=== PATIENT | male | born 1955 | race Caucasian/White ===

== ENCOUNTER 2017-12-04 17:33 | Inpatient (IN) ==
[2017-12-04] MEDS ORDERED: Diphtheria/Tetanus/Pertussis Vaccine Inj 0.5 ML Syringe IM ONE (17:39)
[2017-12-04] MEDS ORDERED: fentaNYL Citrate Inj 100 MCG/2 ML Ampul ONE (17:46)
[2017-12-04 18:05] LABS: Activated Partial Thrombo Time 23.6 sec (24.3-30.1); INR 1.1 Ratio; Prothrombin Time 11.5 sec (9.8-11.6)
[2017-12-04 18:15] LABS: Baso # (Auto) 0.1 th/mm3 (0.0-0.2); Baso % (Auto) 0.5 % (0.0-2.0); Eos # (Auto) 0.3 th/mm3 (0.0-0.4); Hematocrit 47.5 % (39.0-51.0); Lymph # (Auto) 3.8 th/mm3 (1.0-4.8); Lymph % (Auto) 27.9 % (9.0-44.0); Mean Corpuscular HGB Conc 33.7 % (32.0-36.0); Mean Corpuscular Hemoglobin 29.8 pg (27.0-34.0); Mean Corpuscular Volume 88.3 fL (80.0-100.0); Mean Platelet Volume 9.9 fL (7.0-11.0); Mono # (Auto) 1.2 th/mm3 (0.0-0.9); Mono % (Auto) 8.7 % (0.0-8.0); Neut # (Auto) 8.4 th/mm3 (1.8-7.7); Neut % (Auto) 60.9 % (16.0-70.0); Platelet Count 294 th/mm3 (150-450); Red Blood Count 5.38 mil/mm3 (4.50-5.90); Red Cell Distribution Width 14.5 % (11.6-17.2); White Blood Count 13.8 th/mm3 (4.0-11.0)
--- NOTE | 2017-12-04 18:18 | XR ---
EXAM DATE: 12/04/2017 6:07 PM EDT AGE/SEX: 89 years / Male INDICATIONS: Trauma alert. Left hand pain after hitting 3rd digit with a chain saw. CLINICAL DATA: This is the patient's initial encounter. Patient reports that signs and symptoms have been present for 1 day and indicates a pain score of 10/10. MEDICAL/SURGICAL HISTORY: Non-responsive. Non-responsive. COMPARISON: No prior exams available for comparison. FINDINGS: There is a complete fracture of the third middle phalanx and beyond it is amputated. CONCLUSION: Fracture amputation third middle phalanx and beyond. Electronically signed by: Deyvi Sexton MD 12/04/2017 6:17 PM EDT
--- NOTE | 2017-12-04 18:18 | XR ---
EXAM DATE: 12/04/2017 6:09 PM EDT AGE/SEX: 89 years / Male INDICATIONS: Trauma. Tree branch landed on patients left leg. CLINICAL DATA: This is the patient's initial encounter. Patient reports that signs and symptoms have been present for 1 day and indicates a pain score of 10/10. MEDICAL/SURGICAL HISTORY: None. None. COMPARISON: No prior exams available for comparison. FINDINGS: No definite fractures, or dislocations are identified. No definite lytic or sclerotic lesion is seen . CONCLUSION: Unremarkable study. Electronically signed by: Deyvi Sexton MD 12/04/2017 6:16 PM EDT
--- NOTE | 2017-12-04 18:19 | XR ---
EXAM DATE: 12/04/2017 6:10 PM EDT AGE/SEX: 89 years / Male INDICATIONS: Trauma alert. Left lateral leg pain after having an accident with a chainsaw and a tree branch hit lower leg. CLINICAL DATA: This is the patient's initial encounter. Patient reports that signs and symptoms have been present for 1 day and indicates a pain score of 4/10. MEDICAL/SURGICAL HISTORY: Non-responsive. e Non-responsive. COMPARISON: No prior exams available for comparison. FINDINGS: There is a complete fracture of proximal fibula with slight displacement. CONCLUSION: Proximal fibular fracture. Electronically signed by: Deyvi Sexton MD 12/04/2017 6:18 PM EDT
--- NOTE | 2017-12-04 19:01 | ED ---
HPI General Chief Complaint: Trauma Alert Stated Complaint: Trauma Alert Time Seen by Provider: 12/04/17 18:17 Source: patient and EMS Mode of arrival: EMS Limitations: no limitations History of Present Illness HPI narrative: Patient presents as a level 2 trauma. He was using a pull saw on a tree at his house and trying to cut down the limb. Limb then fell and struck him in the left leg. When the limb fell he misplaced the saw and accidentally amputated his left middle finger. The digit was placed on ice and brought here. EMS reports that his initial blood pressure on their arrival was in the 70s but this quickly improved. He has had a normal mental status his entire time. Patient states that he did fall backwards but he did not hit his head nor lose consciousness. He denies head, neck, back pain. MD complaint: injury Onset (ago): minute(s) Loss of Consciousness: no Severity: severe Context: other Associated symptoms: denies other symptoms Treatments prior to arrival: dressings Related Data Home Medications Medication Instructions Recorded Confirmed No Known Home Medications 12/04/17 12/04/17 Allergies Allergy/AdvReac Type Severity Reaction Status Date / Time No Allergy Information Allergy Unverified 12/04/17 17:36 Available Review of Systems ROS: all other systems reviewed are negative [facility] Medical History Medical History Patient denies medical problems (Acute) Surgical History Surgical History No history of previous surgery (Acute) Social History Social History Substance History: No History of Abuse Second Hand Smoke Exposure: Yes Smoking Status: Current every day smoker Tobacco Type: Cigarettes How Often Do You Have a Drink Containing Alcohol: Never Recent Travel in [place] within the Last 8 Weeks: No Recent Out of Country Travel within the Last 8 Weeks: No Immunization History Tetanus Immunization: >5 Years Hx Influenza Vaccine This Season: No Exam Narrative Exam Narrative: GENERAL: Well-appearing male in no acute distress SKIN: Focused skin assessment warm/dry. Multiple abrasions. Laceration to the left ring finger with amputation of the left middle finger near the DIP. Abrasion to left proximal fibula area. HEAD: Atraumatic. Normocephalic. EYES: Pupils equal and round. No scleral icterus. No injection or drainage. ENT: No nasal bleeding or discharge. Mucous membranes pink and moist. NECK: Trachea midline. No JVD. CARDIOVASCULAR: Regular rate and rhythm. No murmur appreciated. Intact and equal peripheral pulses. RESPIRATORY: No accessory muscle use. Clear to auscultation. Breath sounds equal bilaterally. GASTROINTESTINAL: Abdomen soft, non-tender, nondistended. Hepatic and splenic margins not palpable. MUSCULOSKELETAL: No clubbing. No cyanosis. No edema. Hematoma to the left lateral lower leg. Amputation of the distal phalanx of the left middle finger. Laceration with exposed tendon of the left ring finger. NEUROLOGICAL: Awake and alert. No obvious cranial nerve deficits. Motor grossly normal limits. Normal sensation. Normal speech. PSYCHIATRIC: Appropriate mood and affect; insight and judgment normal. Course Initial Documented Vital Signs Pulse Rate 83 12/04/17 18:09 Respiratory Rate 15 12/04/17 18:09 Blood Pressure 117/64 12/04/17 18:09 Pulse Oximetry 100 12/04/17 18:09 Last Documented Vital Signs Pulse Rate 83 12/04/17 18:09 Respiratory Rate 15 12/04/17 18:09 Blood Pressure 117/64 12/04/17 18:09 Pulse Oximetry 100 12/04/17 18:09 Medical Decision Making MDM Narrative Medical decision making narrative: Patient presents as a level 2 trauma secondary to a chain saw injury. He was struck in the left leg with a branch from a tree. X-ray does show a fibula fracture and he has been placed in a splint. There is an abrasion overlying it but the fracture does not appear to be open. I spoke to the orthopedic surgeon plater production, Dr. Fuentes, who is aware of the patient. The patient also has a deep laceration to the left ring finger with an amputation of the distal phalanx of the left middle finger. The wound is grossly contaminated and the amputated part is macerated and grossly contaminated. I spoke with the hand surgeon on-call at [facility] whom stated that they would not re-implant this injury. I then spoke with our hand surgeon here, Dr. Lin, who stated that he would come see the patient. Dr. Blunt, trauma surgeon on-call, has admitted the patient. Tetanus status was updated and he was given Ancef. Medical Screen Exam Complete: Yes Emergency Medical Condition: Yes Differential Diagnosis Differential Diagnosis: Differential diagnosis includes but is not limited to amputation, tendon injury, osteomyelitis, open fracture. Medical Records Medical records reviewed: Yes I reviewed the patient's medical records. Lab Data Lab results reviewed: Yes I reviewed the patient's lab results. Result diagrams: 12/04/17 17:40 Lab Results 12/04/17 12/04/17 12/04/17 Range/Units 17:40 17:40 17:40 WBC 13.8 H (4.0-11.0) th/mm3 RBC 5.38 (4.50-5.90) mil/mm3 Hgb 16.0 (13.0-17.0) gm/dL POC Hgb (Calc) 16.0 (13.0-17.0) g/dL Hct 47.5 (39.0-51.0) % POC Hct 47.0 (39-51.0) % MCV 88.3 (80.0-100.0) fL MCH 29.8 (27.0-34.0) pg MCHC 33.7 (32.0-36.0) % RDW 14.5 (11.6-17.2) % Plt Count 294 (150-450) th/mm3 MPV 9.9 (7.0-11.0) fL Neut % (Auto) 60.9 (16.0-70.0) % Lymph % (Auto) 27.9 (9.0-44.0) % [place] % (Auto) 8.7 H (0.0-8.0) % Eos % (Auto) 2.0 (0.0-4.0) % Baso % (Auto) 0.5 (0.0-2.0) % Neut # (Auto) 8.4 H (1.8-7.7) th/mm3 Lymph # (Auto) 3.8 (1.0-4.8) th/mm3 [place] # (Auto) 1.2 H (0.0-0.9) th/mm3 Eos # (Auto) 0.3 (0.0-0.4) th/mm3 Baso # (Auto) 0.1 (0.0-0.2) th/mm3 WBC Differential . Differential Comment Auto diff final PT 11.5 (9.8-11.6) sec INR 1.1 Ratio APTT 23.6 L (24.3-30.1) sec POC Sodium 141 (137-144) mmol/L POC Potassium 5.6 H (3.6-5.0) mmol/L POC Chloride 109 (102-111) mmol/L POC BUN 24 H (5-21) mg/dL POC Creatinine 1.3 (0.6-1.3) mg/dL POC Glucose 101 (68-110) mg/dL Blood Type Antibody Screen 12/04/17 Range/Units 17:40 WBC (4.0-11.0) th/mm3 RBC (4.50-5.90) mil/mm3 Hgb (13.0-17.0) gm/dL POC Hgb (Calc) (13.0-17.0) g/dL Hct (39.0-51.0) % POC Hct (39-51.0) % MCV (80.0-100.0) fL MCH (27.0-34.0) pg MCHC (32.0-36.0) % RDW (11.6-17.2) % Plt Count (150-450) th/mm3 MPV (7.0-11.0) fL Neut % (Auto) (16.0-70.0) % Lymph % (Auto) (9.0-44.0) % [place] % (Auto) (0.0-8.0) % Eos % (Auto) (0.0-4.0) % Baso % (Auto) (0.0-2.0) % Neut # (Auto) (1.8-7.7) th/mm3 Lymph # (Auto) (1.0-4.8) th/mm3 [place] # (Auto) (0.0-0.9) th/mm3 Eos # (Auto) (0.0-0.4) th/mm3 Baso # (Auto) (0.0-0.2) th/mm3 WBC Differential Differential Comment PT (9.8-11.6) sec INR Ratio APTT (24.3-30.1) sec POC Sodium (137-144) mmol/L POC Potassium (3.6-5.0) mmol/L POC Chloride (102-111) mmol/L POC BUN (5-21) mg/dL POC Creatinine (0.6-1.3) mg/dL POC Glucose (68-110) mg/dL Blood Type A Positive Antibody Screen Negative Imaging Data Attestation: I personally reviewed and interpreted this imaging study as follows : Radiologist's impression: Femur X-Ray 12/04/17 17:41 CONCLUSION: Unremarkable study. Hand X-Ray 12/04/17 17:41 CONCLUSION: Fracture amputation third middle phalanx and beyond. Tibia/Fibula X-Ray 12/04/17 17:41 CONCLUSION: Proximal fibular fracture. Discharge Plan Discharge Disposition Patient Disposition: 30 Still Patient Discharge Condition Condition: Stable Discharge Details Diagnosis: Amputated finger, Closed fibular fracture Physicians Team ED Provider: Elise Reyes Primary Care Provider: UNKNOWN, Attending Provider: Shyam Blunt Other Providers: Fam Lin Status ED Status: Admitted Patient
[2017-12-04] MEDS: Morphine Inj 4 MG/ML Vial IV.PUSH PRN ×2 (19:53→23:54)
[2017-12-04] MEDS: Sod Chloride 0.9% Inj 1,000 ML IV.SIG SCH (19:54)
[2017-12-04] MEDS ORDERED: Post-op Orders (for Pharmacy) OTHER ONE (21:34)
[2017-12-04] MEDS ORDERED: Naloxone Inj 0.4 MG/ML Vial IV.PUSH PRN (21:34)
[2017-12-04 22:44] LABS: Calcium 8.3 mg/dL (8.5-10.1); Carbon Dioxide 20.7 meq/L (21.0-32.0)
[2017-12-04 22:46] LABS: Potassium 5.6 meq/L (3.5-5.1)
[2017-12-05] MEDS: Morphine Inj 4 MG/ML Vial IV.PUSH PRN ×5 (01:53→20:19)
[2017-12-05] MEDS ORDERED: Chlorhexidine Gluconate 2% 1 Pack (2 Cloths) TOPICAL ONE (02:06)
[2017-12-05] MEDS ORDERED: Metoprolol Tartrate 25 MG Tablet PO ONE (02:06)
[2017-12-05] MEDS ORDERED: Sodium Chlor 0.9% Inj 500 ML IV.SIG SCH (03:00)
[2017-12-05] MEDS: Sod Chloride 0.9% Inj 1,000 ML IV.SIG SCH (05:10)
--- NOTE | 2017-12-05 07:32 | P.CONOP ---
[facility] Orthopedics Consult Note - [facility] Consult date: 12/05/17 Requesting physician: Marina Noel (ER staff/trauma service) Consult reason: fracture Chief complaint: Finger Amputation, proximal third fibula fracture Narrative: [place] is a very pleasant 62-year-old male who presented to the emergency department by EMS late last evening. He admits he was cutting down branches with his son using a chainsaw. Patient states his son was up above using the chainsaw and he was below on the ground. He believes that a branch quickly came down which subsequently amputated his middle finger and then hit his left lower leg. After evaluation and radiographs in the ER orthopedic consultation was requested for a left proximal third fibular fracture. Patient states he has no other orthopedic injuries and/or musculoskeletal complaints. Hand surgery is involved. Patient states that he was told that amputated finger was irreparable. Patient previously ambulated independently. He states he has no other medical concerns or issues. No previous orthopedic surgeries. <Deepti Sol" - Last Filed: 12/05/17 07:13> Review of Systems Well outlined medical record <Deepti Sol" - Last Filed: 12/05/17 07:13> PMFSH - History History Provided By: Patient - Medical History Medical History: Medical History (Last Reviewed 12/04/17 @ 18:56 by Elise Reyes MD) Patient denies medical problems - Surgical History Surgical History: Surgical History (Last Reviewed 12/04/17 @ 18:56 by Elise Reyes MD) No history of previous surgery - Tobacco History Second Hand Smoke Exposure: Yes Tobacco Use In Past 30 Days: Yes Smoking Status: Current every day smoker Tobacco Type: Cigarettes - Alcohol History How Often Do You Have a Drink Containing Alcohol: Never - Substance Use History Substance History: No History of Abuse - Travel History Recent Travel in the [place] Within the Last 8 Weeks: No Recent Travel Out of the Country Within the Last 8 Weeks: No - Immunization History Tetanus Immunization: >5 Years Hx Influenza Vaccine This Season: No <Deepti Sol" - Last Filed: 12/05/17 07:13> - Medical History Medical History: Medical History (Last Reviewed 12/04/17 @ 18:56 by Elise Reyes MD) Patient denies medical problems - Surgical History Surgical History: Surgical History (Last Reviewed 12/04/17 @ 18:56 by Elise Reyes MD) No history of previous surgery <Jose R Fuentes - Last Filed: 12/05/17 07:53> Medications and Allergies Active Medications: Active Medications Albuterol (Duoneb Neb (Prn)) 1 ampul NEB Q2HR NEB PRN PRN Reason: SHORTNESS OF BREATH Sodium Chloride (Ns Inj) 1,000 mls @ 100 mls/hr IV.SIG .Q10H [facility]IL[facility] Last Admin: 12/05/17 05:10 Dose: 100 mls/hr Cefazolin Sodium 1,000 mg/ (Sodium Chloride) 100 mls @ 200 mls/hr IV.SIG Q8H [facility]ILA Last Infusion: 12/05/17 02:30 Dose: Infused Lactated Ringer's (Lr 1000 Ml Inj) 1,000 mls @ 30 mls/hr IV.SIG .Q24H [facility] Stop: 12/06/17 02:14 Sodium Chloride (Ns Inj) 500 mls @ 30 mls/hr IV.SIG .Q10H [facility] Lactulose (Lactulose Liq) 30 ml PO DAILY PRN PRN Reason: CONSTIPATION Morphine Sulfate (Morphine Inj) 4 mg IV.PUSH Q2H PRN PRN Reason: PAIN SCALE 6 TO 10 Last Admin: 12/05/17 05:15 Dose: 4 mg Naloxone HCl (Narcan Inj) 0.4 mg IV.PUSH UNSCH PRN PRN Reason: SEE LABEL COMMENTS Ondansetron HCl (Zofran Inj) 4 mg IV.PUSH Q6H PRN PRN Reason: NAUSEA OR VOMITING Oxycodone/Acetaminophen (Percocet 5/325 Mg) 1 tab PO Q4H PRN PRN Reason: PAIN SCALE 3 TO 5 Pantoprazole Sodium (Protonix Inj) 40 mg IV.PUSH Q24H [facility] Senna/Docusate Sodium (Michelle-Colace) 1 tab PO BID [facility]ILA <Deepti Sol" - Last Filed: 12/05/17 07:13> Active Medications: Active Medications Albuterol (Duoneb Neb (Prn)) 1 ampul NEB Q2HR NEB PRN PRN Reason: SHORTNESS OF BREATH Sodium Chloride (Ns Inj) 1,000 mls @ 100 mls/hr IV.SIG .Q10H [facility] Last Admin: 12/05/17 05:10 Dose: 100 mls/hr Cefazolin Sodium 1,000 mg/ (Sodium Chloride) 100 mls @ 200 mls/hr IV.SIG Q8H [facility] Last Infusion: 12/05/17 02:30 Dose: Infused Lactated Ringer's (Lr 1000 Ml Inj) 1,000 mls @ 30 mls/hr IV.SIG .Q24H [facility] Stop: 12/06/17 02:14 Sodium Chloride (Ns Inj) 500 mls @ 30 mls/hr IV.SIG .Q10H [facility] Lactulose (Lactulose Liq) 30 ml PO DAILY PRN PRN Reason: CONSTIPATION Morphine Sulfate (Morphine Inj) 4 mg IV.PUSH Q2H PRN PRN Reason: PAIN SCALE 6 TO 10 Last Admin: 12/05/17 05:15 Dose: 4 mg Naloxone HCl (Narcan Inj) 0.4 mg IV.PUSH UNSCH PRN PRN Reason: SEE LABEL COMMENTS Ondansetron HCl (Zofran Inj) 4 mg IV.PUSH Q6H PRN PRN Reason: NAUSEA OR VOMITING Oxycodone/Acetaminophen (Percocet 5/325 Mg) 1 tab PO Q4H PRN PRN Reason: PAIN SCALE 3 TO 5 Pantoprazole Sodium (Protonix Inj) 40 mg IV.PUSH Q24H [facility] Last Admin: 12/05/17 07:34 Dose: 40 mg Senna/Docusate Sodium (Michelle-Colace) 1 tab PO BID [facility] <Jose R Fuentes K - Last Filed: 12/05/17 07:53> Allergies Allergy/AdvReac Type Severity Reaction Status Date / Time No Known Allergies Allergy Unverified 12/04/17 19:53 Home Medications Medication Instructions Recorded Confirmed Type No Known Home Medications 12/04/17 12/04/17 History Exam Vital signs: Vital Signs 12/04/17 17:34 12/04/17 18:09 12/04/17 19:55 Temperature Pulse Rate 83 88 Respiratory Rate 15 16 Blood Pressure 117/64 140/75 Pulse Oximetry 99 100 100 12/05/17 00:00 12/05/17 02:05 12/05/17 03:58 Temperature 98.9 F Pulse Rate 83 80 75 Respiratory Rate 20 Blood Pressure 137/68 Pulse Oximetry 98 12/05/17 04:00 Temperature 98.5 F Pulse Rate 76 Respiratory Rate 16 Blood Pressure 137/75 Pulse Oximetry 92 L Intake & Output 12/04/17 12/05/17 12/05/17 18:59 06:59 18:59 Intake Total 1100 / 1100 Output Total 550 / 550 Balance 550 / 550 Weight 68.039 kg 68.039 kg Intake: IV 1100 / 1100 NS Inj 1,000 ML @ 100 mls/hr IV 1000 / 1000 .SIG .Q10H [facility] Rx#:[id number] Ancef Inj 1,000 MG In NS Inj 100 / 100 100 ML @ 200 mls/hr IV.SIG Q8H [facility] Rx#:[id number] Output: Urine 550 / 550 Other: Date of Last Bowel Movement 12/04/17 Weight On Admission 68.039 kg Narrative: LLE: Leg was an long splint with polar ice. Jimmy wrap and Sof-Rol was removed for examination, mild swelling to lateral proximal area of calf, skin and tissues are soft, skin is warm, small healed abrasion on lateral aspect, no concerning areas of erythema, patient able to dorsi and plantar flex foot, palpable tenderness posterior to lateral malleolus of the ankle, full motion of distal digits, good cap refill, NVI <Deepti Sol "Tereza" - Last Filed: 12/05/17 07:13> Vital signs: Vital Signs 12/04/17 17:34 12/04/17 18:09 12/04/17 19:55 Temperature Pulse Rate 83 88 Respiratory Rate 15 16 Blood Pressure 117/64 140/75 Pulse Oximetry 99 100 100 12/05/17 00:00 12/05/17 02:05 12/05/17 03:58 Temperature 98.9 F Pulse Rate 83 80 75 Respiratory Rate 20 Blood Pressure 137/68 Pulse Oximetry 98 12/05/17 04:00 Temperature 98.5 F Pulse Rate 76 Respiratory Rate 16 Blood Pressure 137/75 Pulse Oximetry 92 L Intake & Output 12/04/17 12/05/17 12/05/17 18:59 06:59 18:59 Intake Total 1100 / 1100 Output Total 550 / 550 Balance 550 / 550 Weight 68.039 kg 68.039 kg Intake: IV 1100 / 1100 NS Inj 1,000 ML @ 100 mls/hr IV 1000 / 1000 .SIG .Q10H [facility] Rx#:[id number] Ancef Inj 1,000 MG In NS Inj 100 / 100 100 ML @ 200 mls/hr IV.SIG Q8H [facility] Rx#:[id number] Output: Urine 550 / 550 Other: Date of Last Bowel Movement 12/04/17 Weight On Admission 68.039 kg <Jose R Fuentes - Last Filed: 12/05/17 07:53> Results - Labs Result Diagrams: 12/04/17 17:40 12/04/17 17:40 Labs: Laboratory Results - last 24 hr 12/04/17 12/04/17 12/04/17 17:40 17:40 17:40 WBC 13.8 H RBC 5.38 Hgb 16.0 POC Hgb (Calc) 16.0 Hct 47.5 POC Hct 47.0 MCV 88.3 MCH 29.8 MCHC 33.7 RDW 14.5 Plt Count 294 MPV 9.9 Neut % (Auto) 60.9 Lymph % (Auto) 27.9 [place] % (Auto) 8.7 H Eos % (Auto) 2.0 Baso % (Auto) 0.5 Neut # (Auto) 8.4 H Lymph # (Auto) 3.8 [place] # (Auto) 1.2 H Eos # (Auto) 0.3 Baso # (Auto) 0.1 WBC Differential . Differential Comment Auto diff final PT 11.5 INR 1.1 APTT 23.6 L POC Sodium 141 Sodium POC Potassium 5.6 H Potassium POC Chloride 109 Chloride Carbon Dioxide Anion Gap POC BUN 24 H BUN Creatinine POC Creatinine 1.3 Estimated GFR POC Glucose 101 Random Glucose Calcium Blood Type Antibody Screen 12/04/17 12/04/17 17:40 17:40 WBC RBC Hgb POC Hgb (Calc) Hct POC Hct MCV MCH MCHC RDW Plt Count MPV Neut % (Auto) Lymph % (Auto) [place] % (Auto) Eos % (Auto) Baso % (Auto) Neut # (Auto) Lymph # (Auto) [place] # (Auto) Eos # (Auto) Baso # (Auto) WBC Differential Differential Comment PT INR APTT POC Sodium Sodium 141 POC Potassium Potassium 5.6 H POC Chloride Chloride 112 H Carbon Dioxide 20.7 L Anion Gap 8 POC BUN BUN 19 H Creatinine 1.32 H POC Creatinine Estimated GFR 47 L POC Glucose Random Glucose 101 Calcium 8.3 L Blood Type A Positive Antibody Screen Negative - Diagnostic results Imaging: Impressions Femur X-Ray 12/04/17 17:41 CONCLUSION: Unremarkable study. Hand X-Ray 12/04/17 17:41 CONCLUSION: Fracture amputation third middle phalanx and beyond. Tibia/Fibula X-Ray 12/04/17 17:41 CONCLUSION: Proximal fibular fracture. <HailyduDeeptidanish Xavier" - Last Filed: 12/05/17 07:13> - Labs Result Diagrams: 12/04/17 17:40 12/04/17 17:40 Labs: Laboratory Results - last 24 hr 12/04/17 12/04/17 12/04/17 17:40 17:40 17:40 WBC 13.8 H RBC 5.38 Hgb 16.0 POC Hgb (Calc) 16.0 Hct 47.5 POC Hct 47.0 MCV 88.3 MCH 29.8 MCHC 33.7 RDW 14.5 Plt Count 294 MPV 9.9 Neut % (Auto) 60.9 Lymph % (Auto) 27.9 [place] % (Auto) 8.7 H Eos % (Auto) 2.0 Baso % (Auto) 0.5 Neut # (Auto) 8.4 H Lymph # (Auto) 3.8 [place] # (Auto) 1.2 H Eos # (Auto) 0.3 Baso # (Auto) 0.1 WBC Differential . Differential Comment Auto diff final PT 11.5 INR 1.1 APTT 23.6 L POC Sodium 141 Sodium POC Potassium 5.6 H Potassium POC Chloride 109 Chloride Carbon Dioxide Anion Gap POC BUN 24 H BUN Creatinine POC Creatinine 1.3 Estimated GFR POC Glucose 101 Random Glucose Calcium Blood Type Antibody Screen 12/04/17 12/04/17 17:40 17:40 WBC RBC Hgb POC Hgb (Calc) Hct POC Hct MCV MCH MCHC RDW Plt Count MPV Neut % (Auto) Lymph % (Auto) [place] % (Auto) Eos % (Auto) Baso % (Auto) Neut # (Auto) Lymph # (Auto) [place] # (Auto) Eos # (Auto) Baso # (Auto) WBC Differential Differential Comment PT INR APTT POC Sodium Sodium 141 POC Potassium Potassium 5.6 H POC Chloride Chloride 112 H Carbon Dioxide 20.7 L Anion Gap 8 POC BUN BUN 19 H Creatinine 1.32 H POC Creatinine Estimated GFR 47 L POC Glucose Random Glucose 101 Calcium 8.3 L Blood Type A Positive Antibody Screen Negative - Diagnostic results Imaging: Impressions Femur X-Ray 12/04/17 17:41 CONCLUSION: Unremarkable study. Hand X-Ray 12/04/17 17:41 CONCLUSION: Fracture amputation third middle phalanx and beyond. Tibia/Fibula X-Ray 12/04/17 17:41 CONCLUSION: Proximal fibular fracture. <Jose R Fuentes - Last Filed: 12/05/17 07:53> Assessment and Plan - Assessment and Plan The findings were discussed with the patient. Dr Jose R Fuentes has reviewed images and details of this case. Recommendations are given for non-operative management at this time of left proximal third fibula fracture. X-rays will be ordered of left ankle. Patient will be placed into a tall walking fracture boot. As long as fracture boot sits above fracture site (which I believe it will) and is comfortable patient is okay to weight-bear as tolerated in boot. Progress physical therapy for mobilization and pain control. Continue pain control. Ice as needed Recommended orthopedic follow up in 7-10 days. Further displacement of the fracture site may require fixation. The possibility of future surgical treatment was discussed with the patient in detail, the patient acknowledges full understanding. Appreciate orthopedic involvement in patient's care. Will follow. <Deepti Sol" - Last Filed: 12/05/17 07:13> - Attending Attestation Attending Attestation: The exam, history, and the medical decision-making described in the above note were completed with the assistance of the mid-level provider. I reviewed and agree with the findings presented. <Jose R Fuentes - Last Filed: 12/05/17 07:53>
[2017-12-05] MEDS: Pantoprazole Inj 40 MG Vial IV.PUSH SCH (07:34)
--- NOTE | 2017-12-05 07:51 | MH ---
cc: Shyam Blunt MD DATE OF ADMISSION: 12/04/2017 ADMITTING PHYSICIAN: Dr. Shyam Blunt ADMITTING DIAGNOSIS: Industrial injury traumatic amputation of the left third finger and fracture of the proximal left fibula. HISTORY OF PRESENT ILLNESS: This pleasant 41-year-old male was apparently using a saw to pull a tree down and then the saw got stuck, bounced back, and amputated his left third finger. Digit was placed on ice and brought here. The patient came as priority 2 trauma alert. He also fell backwards onto something, so he broke his fibula. On arrival, the patient is awake, alert, oriented, complaining with pain in his right knee and left hand. PAST SURGICAL HISTORY: Negative. MEDICATIONS: None. ALLERGIES: NONE. SOCIAL HISTORY: Negative. PHYSICAL EXAMINATION: GENERAL: Shows pleasant 41-year-old male. HEENT: Normocephalic. No trauma to the head. Pupils equal, reactive. Extraocular muscles intact. NECK: Supple. Bilateral carotid pulses. No signs of trauma to the neck. CHEST: Bilateral breath sounds. No sign of trauma to the chest. Hemodynamically, the patient is intact. ABDOMEN: Soft, active bowel sounds. No rebound, no guarding, no masses. EXTREMITIES: The patient has bilateral femoral, popliteal, dorsalis pedis, posterior tibial pulses, bilateral radial ulnar, brachial ulnar, and radial pulses. He has a traumatic amputation of the third finger, left hand at the level of the second phalanx and this is somewhat under an angle and open. There is no way to reimplant the finger here. In addition, the patient has some swelling of the right knee consistent with a proximal fibula fracture. NEUROLOGIC: The patient is fully intact. ASSESSMENT AND PLAN: The patient will be admitted. Plastic surgery, orthopedics was consulted. Further care per clinical. MD PADMAJA Lopes/valente , 09:52 PM , 09:59 PM
--- NOTE | 2017-12-05 08:31 | XR ---
EXAM DATE: 12/05/2017 8:24 AM EDT AGE/SEX: 89 years / Male INDICATIONS: Trauma. Pain near Achilles tendon. Fracture of proximal third fibula. CLINICAL DATA: This is the patient's initial encounter. Patient reports that signs and symptoms have been present for 2 days and indicates a pain score of 10/10. MEDICAL/SURGICAL HISTORY: None. None. COMPARISON: [facility], TIBIA FIBULA LEFT 2V, 12/04/2017. . FINDINGS: Bony structures are intact and in normal alignment. Joints are intact without dislocation or signifi cant arthropathy. Osseous density is normal. Soft tissues are unremarkable. No radiopaque foreign bodies seen. CONCLUSION: No evidence of recent bony injury. Electronically signed by: Sincere Damon MD 12/05/2017 8:30 AM EDT
[2017-12-05] MEDS: Senna/Docusate Sodium 8.6/50 MG Tablet PO SCH ×2 (08:52→20:24)
--- NOTE | 2017-12-05 10:18 | P.PN ---
Subjective Interval history: Pain controlled Awaiting ankle boot to be placed per Ortho Physical Exam Vital signs: Vital Signs 12/04/17 17:34 12/04/17 18:09 12/04/17 19:55 Temperature Pulse Rate 83 88 Respiratory Rate 15 16 Blood Pressure 117/64 140/75 Pulse Oximetry 99 100 100 12/05/17 00:00 12/05/17 02:05 12/05/17 03:58 Temperature 98.9 F Pulse Rate 83 80 75 Respiratory Rate 20 Blood Pressure 137/68 Pulse Oximetry 98 12/05/17 04:00 12/05/17 08:30 Temperature 98.5 F Pulse Rate 76 Respiratory Rate 16 Blood Pressure 137/75 Pulse Oximetry 92 L 92 L Intake & Output 12/04/17 12/05/17 12/05/17 18:59 06:59 18:59 Intake Total 1100 / 1100 Output Total 550 / 550 Balance 550 / 550 Weight 68.039 kg 68.039 kg Intake: IV 1100 / 1100 NS Inj 1,000 ML @ 100 mls/hr IV 1000 / 1000 .SIG .Q10H [facility] Rx#:[id number] Ancef Inj 1,000 MG In NS Inj 100 / 100 100 ML @ 200 mls/hr IV.SIG Q8H [facility] Rx#:[id number] Output: Urine 550 / 550 Other: Date of Last Bowel Movement 12/04/17 Weight On Admission 68.039 kg Narrative: GENERAL: Well-nourished, well developed adult male lying in bed in no acute distress. SKIN: Warm and dry. HEAD: Normocephalic. EYES: Pupils equal and round. No scleral icterus. ENT: No nasal bleeding or discharge. Mucous membranes pink and moist. NECK: Trachea midline. No JVD. CARDIOVASCULAR: Regular rate and rhythm. RESPIRATORY: No accessory muscle use. Lungs clear to auscultation. Breath sounds equal bilaterally. GASTROINTESTINAL: Abdomen soft, non-tender, nondistended. + BS. MUSCULOSKELETAL: Extremities without cyanosis, or edema. Left hand dressing C/D /I. LLE long soft splint in place. MAEW, + perfused NEUROLOGICAL: Awake and alert. Normal speech. Results - Labs CBC & Chem 7: 12/04/17 17:40 12/04/17 17:40 Laboratory Results - last 24 hr 12/04/17 12/04/17 12/04/17 17:40 17:40 17:40 WBC 13.8 H RBC 5.38 Hgb 16.0 POC Hgb (Calc) 16.0 Hct 47.5 POC Hct 47.0 MCV 88.3 MCH 29.8 MCHC 33.7 RDW 14.5 Plt Count 294 MPV 9.9 Neut % (Auto) 60.9 Lymph % (Auto) 27.9 Desha % (Auto) 8.7 H Eos % (Auto) 2.0 Baso % (Auto) 0.5 Neut # (Auto) 8.4 H Lymph # (Auto) 3.8 Desha # (Auto) 1.2 H Eos # (Auto) 0.3 Baso # (Auto) 0.1 WBC Differential . Differential Comment Auto diff final PT 11.5 INR 1.1 APTT 23.6 L POC Sodium 141 Sodium POC Potassium 5.6 H Potassium POC Chloride 109 Chloride Carbon Dioxide Anion Gap POC BUN 24 H BUN Creatinine POC Creatinine 1.3 Estimated GFR POC Glucose 101 Random Glucose Calcium Blood Type Antibody Screen 12/04/17 12/04/17 17:40 17:40 WBC RBC Hgb POC Hgb (Calc) Hct POC Hct MCV MCH MCHC RDW Plt Count MPV Neut % (Auto) Lymph % (Auto) Desha % (Auto) Eos % (Auto) Baso % (Auto) Neut # (Auto) Lymph # (Auto) Desha # (Auto) Eos # (Auto) Baso # (Auto) WBC Differential Differential Comment PT INR APTT POC Sodium Sodium 141 POC Potassium Potassium 5.6 H POC Chloride Chloride 112 H Carbon Dioxide 20.7 L Anion Gap 8 POC BUN BUN 19 H Creatinine 1.32 H POC Creatinine Estimated GFR 47 L POC Glucose Random Glucose 101 Calcium 8.3 L Blood Type A Positive Antibody Screen Negative - Imaging Impressions Femur X-Ray 12/04/17 17:41 CONCLUSION: Unremarkable study. Hand X-Ray 12/04/17 17:41 CONCLUSION: Fracture amputation third middle phalanx and beyond. Tibia/Fibula X-Ray 12/04/17 17:41 CONCLUSION: Proximal fibular fracture. Ankle X-Ray 12/05/17 00:00 CONCLUSION: No evidence of recent bony injury. Assessment and Plan - Plan [place]: Patient was Using a chain saw to cut down a tree limb, when the tree limb fell and struck him in the leg causing him to lose control of the saw and amputate his finger. No LOC. INJURIES: LEFT amputation third middle phalanx LEFT fibula fx LEFT amputation third middle phalanx Hand surgery consulted Awaiting plan Pain control Dressing changes per hand surgery LEFT fibula fx Orthopedics consulted Nonoperative management Orthopedics is ordered total ankle boot and patient may be able to be WBAT LLE Pain control Bowel regimen OOB once boot placed-PT and OT ordered Plan of care discussed with patient at bedside. Collaborating Trauma surgeon agrees with plan. Case management consulted to assist with discharge planning.
--- NOTE | 2017-12-05 15:33 | ECG ---
Date Performed: 12/05/2017 Time Performed: 07:14:23 PTAGE: 89 years EKG: Sinus rhythm WITH SINUS ARRHYTHMIA NORMAL ECG NO PREVIOUS TRACING DOCTOR: Jose R Feliz Interpretating Date/Time 12/05/2017 15:31:19
[2017-12-05] MEDS: oxyCODONE/Acetaminophen 10/325 Tablet PO PRN (17:36)
[2017-12-06] MEDS: oxyCODONE/Acetaminophen 10/325 Tablet PO PRN ×3 (03:28→17:54)
[2017-12-06 05:17] LABS: Baso % (Auto) 0.2 % (0.0-2.0); Eos # (Auto) 0.3 th/mm3 (0.0-0.4); Eos % (Auto) 2.5 % (0.0-4.0); Hemoglobin 14.5 gm/dL (13.0-17.0); Lymph # (Auto) 2.1 th/mm3 (1.0-4.8); Lymph % (Auto) 16.7 % (9.0-44.0); Mean Corpuscular HGB Conc 33.7 % (32.0-36.0); Mean Corpuscular Hemoglobin 29.6 pg (27.0-34.0); Mean Corpuscular Volume 87.8 fL (80.0-100.0); Mean Platelet Volume 9.6 fL (7.0-11.0); Mono # (Auto) 1.3 th/mm3 (0.0-0.9); Mono % (Auto) 10.7 % (0.0-8.0); Neut # (Auto) 8.8 th/mm3 (1.8-7.7); Neut % (Auto) 69.9 % (16.0-70.0); Platelet Count 202 th/mm3 (150-450); Red Blood Count 4.89 mil/mm3 (4.50-5.90); Red Cell Distribution Width 14.4 % (11.6-17.2); White Blood Count 12.6 th/mm3 (4.0-11.0)
[2017-12-06 05:26] LABS: Calcium 7.7 mg/dL (8.5-10.1); Carbon Dioxide 21.8 meq/L (21.0-32.0); Potassium 3.8 meq/L (3.5-5.1)
[2017-12-06] MEDS: Pantoprazole Inj 40 MG Vial IV.PUSH SCH (06:29)
[2017-12-06] MEDS: Sod Chloride 0.9% Inj 1,000 ML IV.SIG SCH (10:02)
[2017-12-06] MEDS: Senna/Docusate Sodium 8.6/50 MG Tablet PO SCH ×2 (11:10→20:01)
--- NOTE | 2017-12-06 13:30 | P.DCO ---
- Physical Therapy Order: Evaluate and treat, Improve ambulation, Strength and gait training - Home Health Nursing Order: Nursing assessment with vital signs - Certification I have seen patient Kashmir Banks on 12/06/17. My clinical findings support the need for the requested home health care services because: Limited mobility due to disease progression, Limited ability to care for self I certify that my clinical findings support that this patient is homebound because: Impaired cognitive ability/safety
--- NOTE | 2017-12-06 13:43 | P.PN ---
Subjective Interval history: Afebrile. Pain controlled Patient wants to go home today, but per nursing hand surgery wants to eval wound tomorrow instead and hold DC Physical Exam Vital signs: Vital Signs 12/05/17 16:00 12/05/17 17:54 12/05/17 20:00 Temperature 99.3 F 99 F Pulse Rate 76 61 78 Respiratory Rate 16 18 Blood Pressure 124/71 118/63 Pulse Oximetry 95 95 12/06/17 00:00 12/06/17 04:00 12/06/17 08:00 Temperature 98.4 F 98.6 F 97.9 F Pulse Rate 73 81 66 Respiratory Rate 18 18 18 Blood Pressure 111/63 121/63 121/61 Pulse Oximetry 95 95 96 12/06/17 11:58 Temperature 97.7 F Pulse Rate 85 Respiratory Rate 18 Blood Pressure 110/71 Pulse Oximetry 96 Intake & Output 12/05/17 12/06/17 12/06/17 18:59 06:59 18:59 Intake Total 2300 / 2300 700 / 700 Balance 2300 / 2300 700 / 700 Weight 68.03 kg Intake: IV 1200 / 1200 100 / 100 NS Inj 1,000 ML @ 100 mls/hr IV 1000 / 1000 .SIG .Q10H [facility] Rx#:[id number] Ancef Inj 1,000 MG In NS Inj 200 / 200 100 / 100 100 ML @ 200 mls/hr IV.SIG Q8H [facility] Rx#:[id number] Oral 600 / 600 Other 1100 / 1100 Other: Other Intake Source Saline Solution # Voids 700 Date of Last Bowel Movement 12/04/17 12/04/17 Narrative: GENERAL: 62 year old well-nourished, well developed male lying in bed in no acute distress. SKIN: Warm and dry. CARDIOVASCULAR: Regular rate and rhythm. RESPIRATORY: No accessory muscle use. Lungs clear to auscultation. Breath sounds equal bilaterally. GASTROINTESTINAL: Abdomen soft, non-tender, nondistended. + BS. MUSCULOSKELETAL: Extremities without cyanosis, or edema. Left hand dressing C/D /I. LLE long leg boot in place. MAEW, + perfused NEUROLOGICAL: Awake and alert. Normal speech. Results - Labs CBC & Chem 7: 12/06/17 03:32 12/06/17 03:32 Laboratory Results - last 24 hr 12/06/17 12/06/17 03:32 03:32 WBC 12.6 H RBC 4.89 Hgb 14.5 Hct 43.0 MCV 87.8 MCH 29.6 MCHC 33.7 RDW 14.4 Plt Count 202 D MPV 9.6 Neut % (Auto) 69.9 Lymph % (Auto) 16.7 [place] % (Auto) 10.7 H Eos % (Auto) 2.5 Baso % (Auto) 0.2 Neut # (Auto) 8.8 H Lymph # (Auto) 2.1 [place] # (Auto) 1.3 H Eos # (Auto) 0.3 Baso # (Auto) 0.0 WBC Differential . Differential Comment Auto diff final Sodium 142 Potassium 3.8 D Chloride 110 H Carbon Dioxide 21.8 Anion Gap 10 BUN 14 Creatinine 0.98 Estimated GFR 77 L Random Glucose 113 H Calcium 7.7 L Assessment and Plan - Plan [place]: Patient was Using a chain saw to cut down a tree limb, when the tree limb fell and struck him in the leg causing him to lose control of the saw and amputate his finger. No LOC. INJURIES: LEFT amputation third middle phalanx LEFT fibula fx LEFT amputation third middle phalanx Hand surgery consulted No note documented but patient states his wound was irrigated in ED Pain control Dressing changes per hand surgery Continue Ancef per hand sx LEFT fibula fx Orthopedics consulted Nonoperative management WBAT LLE with tall ankle boot Pain control Bowel regimen OOB -PT and OT ordered Plan of care discussed with patient and RN at bedside. Collaborating Trauma surgeon agrees with plan. Case management consulted to assist with discharge planning. Plan to DC home with [facility] tomorrow after hand surgery does a wound check.
[2017-12-06] MEDS: Morphine Inj 4 MG/ML Vial IV.PUSH PRN (19:57)
[2017-12-06] MEDS: Famotidine 20 MG Tablet PO SCH (22:10)
[2017-12-07] MEDS: oxyCODONE/Acetaminophen 10/325 Tablet PO PRN (05:42)
[2017-12-07] MEDS: Senna/Docusate Sodium 8.6/50 MG Tablet PO SCH (08:40)
[2017-12-07] MEDS: Famotidine 20 MG Tablet PO SCH (08:40)
--- NOTE | 2017-12-07 10:53 | P.PNOP ---
Subjective Interval history: Patient awake and alert and sitting upright in bed. Patient has been fitted for fracture boot and states that it is comfortable with walking. Feels ready for discharge to home. Physical Exam Vital signs: Vital Signs 12/06/17 11:58 12/06/17 16:00 12/06/17 20:00 Temperature 97.7 F 97.8 F 98.1 F Pulse Rate 85 69 71 Respiratory Rate 18 17 Blood Pressure 110/71 91/54 L 136/72 Pulse Oximetry 96 98 97 12/07/17 00:00 12/07/17 08:00 Temperature 98.3 F 98.0 F Pulse Rate 61 69 Respiratory Rate 16 17 Blood Pressure 123/69 124/60 Pulse Oximetry 94 L 97 Intake & Output 12/06/17 12/07/17 12/07/17 18:59 06:59 18:59 Intake Total 1200 / 1200 200 / 200 Output Total 875 / 875 700 / 700 Balance 325 / 325 200 / 200 -700 / -700 Intake: IV 100 / 100 200 / 200 Ancef Inj 1,000 MG In NS Inj 100 / 100 200 / 200 100 ML @ 200 mls/hr IV.SIG Q8H [facility] Rx#:[id number] Oral 1100 / 1100 Output: Urine 875 / 875 700 / 700 Other: Date of Last Bowel Movement 12/04/17 12/04/17 12/05/17 Narrative: GENERAL: 62 year old well-nourished, well developed male lying in bed in no acute distress. SKIN: Warm and dry. CARDIOVASCULAR: Regular rate and rhythm. RESPIRATORY: No accessory muscle use. Lungs clear to auscultation. Breath sounds equal bilaterally. GASTROINTESTINAL: Abdomen soft, non-tender, nondistended. + BS. MUSCULOSKELETAL: Extremities without cyanosis, or edema. Left hand dressing C/D /I. LLE long leg boot in place. MAEW, + perfused, tender to palpation over quadriceps muscle, slight swelling noticed NEUROLOGICAL: Awake and alert. Normal speech. Results - Labs CBC & Chem 7: 12/06/17 03:32 12/06/17 03:32 - Imaging Femur X-Ray 12/04/17 17:41 CONCLUSION: Unremarkable study. Hand X-Ray 12/04/17 17:41 CONCLUSION: Fracture amputation third middle phalanx and beyond. Tibia/Fibula X-Ray 12/04/17 17:41 CONCLUSION: Proximal fibular fracture. Ankle X-Ray 12/05/17 00:00 CONCLUSION: No evidence of recent bony injury. Assessment and Plan - Assessment and Plan Ortho status stable Progress rehab, weightbearing as tolerated in fracture boot Ankle x-rays reviewed and are negative Negative x-rays of femur. Soft tissue injury to quad. Ice as needed Cleared for discharge from orthopedic standpoint admits that she has a walker at home. Follow-up in 7-10 days
[2017-12-07 12:17] VITALS: BP 111/70; PULSE 70; RESP 18; TEMP 98.1; O2SAT 96
--- NOTE | 2017-12-07 12:17 | P.PN ---
Subjective Interval history: Patient doing well. No complaints Physical Exam Vital signs: Vital Signs 12/06/17 16:00 12/06/17 20:00 12/07/17 00:00 Temperature 97.8 F 98.1 F 98.3 F Pulse Rate 69 71 61 Respiratory Rate 17 16 Blood Pressure 91/54 L 136/72 123/69 Pulse Oximetry 98 97 94 L 12/07/17 08:00 12/07/17 11:44 Temperature 98.0 F Pulse Rate 69 Respiratory Rate 17 Blood Pressure 124/60 Pulse Oximetry 97 97 Intake & Output 12/06/17 12/07/17 12/07/17 18:59 06:59 18:59 Intake Total 1200 / 1200 200 / 200 Output Total 875 / 875 700 / 700 Balance 325 / 325 200 / 200 -700 / -700 Intake: IV 100 / 100 200 / 200 Ancef Inj 1,000 MG In NS Inj 100 / 100 200 / 200 100 ML @ 200 mls/hr IV.SIG Q8H [facility] Rx#:[id number] Oral 1100 / 1100 Output: Urine 875 / 875 700 / 700 Other: Date of Last Bowel Movement 12/04/17 12/04/17 12/05/17 Narrative: L MF and RF laceration sites well apposed No signs infection Results - Labs CBC & Chem 7: 12/06/17 03:32 12/06/17 03:32 Assessment and Plan - Assessment (1) Amputated finger Code(s): S68.119A - Complete traumatic metacarpophalangeal amputation of unspecified finger, initial encounter Status: Acute - Plan 62M s/p L MF shortening and closure after traumatic partial amputation Doing well Please discharge per primary with an Rx for mupirocin ointment 2% and xeroform gauze daily to L hand Po abx per primary Please have pt RTC in 1 week (1) Amputated finger Qualifiers: Encounter type: initial encounter Qualified Code(s): S68.119A - Complete traumatic metacarpophalangeal amputation of unspecified finger, initial encounter
--- NOTE | 2017-12-07 15:09 | P.DS ---
Date of admission: 12/04/17 18:18 Primary care physician: UNKNOWN Attending physician on discharge: Franik Breen Anticipated date of discharge: 12/07/17 Brief History from admission: Chain saw injury DS: Diagnosis - Discharge Diagnosis (1) Amputated finger Status: Acute (2) Closed fibular fracture Status: Acute DS: Medications - Discharge Medications Prescriptions: mupirocin 0 applicatio TOPICAL UNSCH X1 PRN 7 Days g PRN Reason: See Label Comments oxycodone-acetaminophen 1 tab PO Q4H PRN #15 tab PRN Reason: Acute Pain DS: Summary Hospital Course: [place]: This is a 62 year old male who was using a chainsaw to cut down a tree limb, when the tree limb fell and struck him in the leg causing him to lose control of the chainsaw, and amputated his finger. No LOC. INJURIES: LEFT amputation third middle phalanx LEFT fibula fx (non-op) PMHx: Smoker Procedures: 12/04: Left hand washout at bedside by hand surgery Consults: Hand surgery. Orthopedics. Case management. ____ The patient is now tolerating a po diet. Eating and drinking well. Pain is being managed well with PO pain medications, and patient is being a provided with a script for pain meds upon discharge. [This patient will be prescribed narcotic pain medications due to his traumatic injuries. The patient has a normal physiological response to severe traumatic injuries and surgery. He will need acute pain management with prescribed narcotic treatment. The [employer] prescription drug monitoring program database has been queried.] (NO driving while taking narcotic pain medication enforced to patient.) We have recommended to patient to continue with stool softeners while taking narcotic pain medications to prevent constipation. Pt has been participating in PT and OT while admitted at [facility] and has been ambulating with their assistance and independently. PT recommends home health care. [id number] completed. DME ordered. All follow up appointments have been provided and discussed with the patient. It is recommended that the patient keeps all his follow up appointments for continued recovery. Dr. Lin changed dressing to left finger today prior to DC. DC home with Bactroban for dressing changes. Patient's condition and plan of care discussed with collaborating trauma surgeon. He is agreeable to plan for discharge today. Therefore, the patient is stable to be safely discharged home from a trauma surgery standpoint. Thank you for allowing us to participate in his care. We wish Kashmir the best in his recovery. LEFT amputation third middle phalanx Hand surgery consulted and assisting in management and care 12/04: Left hand washout at bedside by hand surgeon Pain control Dressing change today by Dr. Lin prior to DC Dressing changes with Bactroban Follow-up in clinic in 1 week LEFT fibula fx Orthopedics consulted and assisting in management and care Nonoperative management WBAT LLE with tall ankle boot Pain control Bowel regimen Encourage OOB PT and OT ordered - Time Spent with Patient Total time spent providing and/or coordinating discharge services: Greater than 30 minutes - Quality: VTE Deep Vein Thrombosis/Pulmonary Embolism Present on Admission: No Exam Vital signs: Vital Signs 12/06/17 16:00 12/06/17 20:00 12/07/17 00:00 Temperature 97.8 F 98.1 F 98.3 F Pulse Rate 69 71 61 Respiratory Rate 17 16 Blood Pressure 91/54 L 136/72 123/69 Pulse Oximetry 98 97 94 L 12/07/17 08:00 12/07/17 11:44 12/07/17 12:00 Temperature 98.0 F 98.1 F Pulse Rate 69 70 Respiratory Rate 17 18 Blood Pressure 124/60 111/70 Pulse Oximetry 97 97 96 Intake & Output 12/06/17 12/07/17 12/07/17 18:59 06:59 18:59 Intake Total 1200 / 1200 200 / 200 Output Total 875 / 875 700 / 700 Balance 325 / 325 200 / 200 -700 / -700 Intake: IV 100 / 100 200 / 200 Ancef Inj 1,000 MG In NS Inj 100 / 100 200 / 200 100 ML @ 200 mls/hr IV.SIG Q8H [facility] Rx#:[id number] Oral 1100 / 1100 Output: Urine 875 / 875 700 / 700 Other: Date of Last Bowel Movement 12/04/17 12/04/17 12/05/17 Narrative: GENERAL: This is a 62-year-old male sitting up in bed, eating breakfast. SKIN: Warm and dry. Dressing in place to left hand CDI. HEAD: Atraumatic. Normocephalic. EYES: PERRLA ENT: No nasal bleeding or discharge. Mucous membranes pink and moist. NECK: Trachea midline. No JVD. CARDIOVASCULAR: Regular rate and rhythm. RESPIRATORY: No accessory muscle use. Lungs are clear to auscultation. Breath sounds equal bilaterally. No distress or dyspnea. GASTROINTESTINAL: BS + x 4 quads. Abdomen soft, non-tender, nondistended. MUSCULOSKELETAL: Extremities without cyanosis, or edema. Left ankle boot in place. + peripheral pulses x 4 extremities. Warm with good capillary refill and sensation. MAEW. NEUROLOGICAL: Awake and alert. Normal speech and pattern. Results Procedures completed during hospitalization: . - Impressions ITS Impressions Femur X-Ray 12/04/17 17:41 CONCLUSION: Unremarkable study. Hand X-Ray 12/04/17 17:41 CONCLUSION: Fracture amputation third middle phalanx and beyond. Tibia/Fibula X-Ray 12/04/17 17:41 CONCLUSION: Proximal fibular fracture. Ankle X-Ray 12/05/17 00:00 CONCLUSION: No evidence of recent bony injury. Discharge Plan - Discharge Disposition Patient Disposition: W/Home Health Service - Discharge Condition Condition: Stable - Discharge Order Discharge Orders: Discharge Order (Routine); Ordered 12/07/17 Ordered By: Dian Lira Orthopedic Clear for Discharge (Routine); Ordered 12/07/17 Ordered By: Deepti Sol ([place]ley) - Discharge Details Anticipated Discharge Date: 12/07/17 Discharge Comment: May DC home with home health care once Dr. Lin evaluates left finger and change his dressing. - Physicians Team Primary Care Provider: UNKNOWN, Attending Provider: Shyam Blunt Other Providers: Fam Lin MD ; Kevin Quintana MD ; Ant Zhang MD ; [facility] ; Jerald Hammonds MD ; Dian Lira ARNP ; Franki Breen MD ; Linda Bass MD ; Marina Noel ARNP ; Shyam Blunt MD ; Jose R Fuentes MD ; [facility]
== END 2017-12-07 14:46 | disposition home health service (06) ==
LOC: NEPI 17:33 → NEDA 18:18 → EDBD 18:18 → N06 23:33
PROVIDERS: ADMIT Surgery; ATTEND Surgery